=== PATIENT | female | born 1965 | race Caucasian/White ===

== ENCOUNTER → 2016-10-25 | Outpatient (CLI) | payer BC ==
[~2016-10-25] MED LIST: BACL-19 PO; GABA600T2 PO; HYDR-3307 PO; METH750T87 PO; OXYC1TAB9 PO
== END | disposition home or self-care (01) ==
LOC: LAB 09:47
PROVIDERS: ATTEND Neurological Surgery
DX: Z01.818 Encounter for other preprocedural examination (principal)
CPT/HCPCS: 71020; 93005

== ENCOUNTER 2016-11-23 11:33 | Inpatient (IN) | payer BC ==
[2016-11-22 16:09] LABS: HEMOGLOBIN 14.8 g/dL (11.7-16.4); WHITE BLOOD COUNT 8.5 x10^3/uL (3.4-10)
[2016-11-22 16:19] LABS: BLOOD UREA NITROGEN 13 mg/dL (7-18)
[~2016-11-23] VITALS: Ht 180.3 cm; Wt 99.7 kg
[~2016-11-23 11:33] MED LIST changes: +BACITRACIN 50,000 UNIT ONE; +BUPIVACAINE/PF 0.5% ONE; +EPINEPHRINE 1 MG/ML, 1ML ONE; +THROMBIN 20,000 UNIT VIAL TP ONE
[2016-11-23] MEDS ORDERED: LACTATED RINGERS 1,000 ML IV SCH (12:08)
[2016-11-23] MEDS ORDERED: OXYC-307 PO (12:13)
[2016-11-23] MEDS ORDERED: LIDOCAINE OINTMENT (12:15)
[2016-11-23] MEDS ORDERED: FENTANYL PF 250 MCG/5ML ONE (14:12)
[2016-11-23] MEDS ORDERED: LIDOCAINE-MPF 2% ,5ML ONE (14:16)
[2016-11-23] MEDS ORDERED: CEFAZOLIN 1,000 MG ONE (14:16)
[2016-11-23] MEDS ORDERED: METOCLOPRAMIDE 5 MG/ML, 2ML ONE (14:16)
[2016-11-23] MEDS ORDERED: DEXAMETHASONE 4 MG/ML, 5ML ONE (14:16)
[2016-11-23] MEDS ORDERED: PROPOFOL 10 MG/ML, 50ML ONE (14:16)
[2016-11-23] MEDS ORDERED: ONDANSETRON 2MG/ML, 2ML ONE ×2 (14:16→16:45)
[2016-11-23] MEDS ORDERED: ONDANSETRON 2MG/ML, 2ML IVPush PRN (15:00)
[2016-11-23] MEDS ORDERED: LABETALOL 5MG/ML, 20ML IV PRN (15:00)
[2016-11-23] MEDS ORDERED: OXYcodone 5 MG/5 ML ORAL.SOL UDC PO PRN (15:00)
[2016-11-23] MEDS ORDERED: ACETAMINOPHEN 325 MG TABLET PO PRN (15:00)
[2016-11-23] MEDS ORDERED: hydrALAzine 20 MG/ML, 1ML IV PRN (15:00)
[2016-11-23] MEDS ORDERED: PROMETHAZINE 25 MG/ML, 1ML IV PRN (15:00)
[2016-11-23] MEDS ORDERED: DIAZEPAM 5 MG/ML, 2ML IVPush PRN (15:00)
[2016-11-23] MEDS ORDERED: MIDAZOLAM 1 MG/ML, 2ML IV PRN (15:00)
[2016-11-23] MEDS ORDERED: MIDAZOLAM 1 MG/ML, 2ML ONE ×2 (15:33→15:34)
[2016-11-23] MEDS ORDERED: FENTANYL PF 100 MCG/2ML ONE ×3 (16:42→17:38)
[2016-11-23] MEDS ORDERED: OXYcodone 5 MG/5 ML ORAL.SOL UDC ONE (16:44)
[2016-11-23] MEDS ORDERED: ACETAMINOPHEN 650 MG/20.3 ML UDC ONE (16:45)
[2016-11-23] MEDS: FENTANYL PF 100 MCG/2ML IV PRN ×7 (16:46→23:34)
[2016-11-23] MEDS ORDERED: DIPHENHYDRAMINE 50 MG CAPSULE PO PRN (19:00)
[2016-11-23] MEDS ORDERED: NS + 20MEQ KCL 1,000 ML IV SCH (19:00)
[2016-11-23] MEDS ORDERED: MAGNESIUM HYDROXIDE 8%, 30ML UDC PO PRN (19:00)
[2016-11-23] MEDS ORDERED: DIPHENHYDRAMINE 50 MG/ML, 1ML IM PRN (19:00)
[2016-11-23] MEDS ORDERED: OXYcodone/APAP 5/325MG TABLET PO PRN (19:00)
[2016-11-23] MEDS ORDERED: BISACODYL 10 MG SUPP PR PRN (19:00)
[2016-11-23] MEDS ORDERED: METHOCARBAMOL 1,000 MG in DEXTROSE 5% 100 ML IV ONE (20:00)
[2016-11-23 20:15] VITALS: BP 134/84
[2016-11-23] MEDS ORDERED: ZOLPIDEM 5MG TABLET PO PRN (21:00)
[2016-11-23] MEDS: OXYcodone 5 MG/5 ML ORAL.SOL UDC PO PRN (21:28)
[2016-11-23] MEDS: ACETAMINOPHEN 650 MG/20.3 ML UDC PO PRN (21:28)
[2016-11-23] MEDS: CEFAZOLIN PMX 1GM/50ML 50 ML IVPB SCH (22:22)
[2016-11-24 00:10] VITALS: BP 147/82
[2016-11-24] MEDS: OXYcodone 5 MG/5 ML ORAL.SOL UDC PO PRN ×4 (01:28→14:18)
[2016-11-24] MEDS: ACETAMINOPHEN 650 MG/20.3 ML UDC PO PRN ×4 (01:28→14:18)
[2016-11-24 04:05] VITALS: BP 135/69
[2016-11-24] MEDS: FENTANYL PF 100 MCG/2ML IV PRN ×4 (04:06→15:57)
[2016-11-24] MEDS: METHOCARBAMOL 750 MG in DEXTROSE 5% 100 ML IV SCH ×2 (04:06→12:29)
[2016-11-24] MEDS ORDERED: SENN1TAB7 PO (04:52)
[2016-11-24] MEDS ORDERED: CHOL10003 PO ×2 (04:54→16:45)
[2016-11-24] MEDS ORDERED: CALC300T5 PO (04:55)
[2016-11-24] MEDS: CEFAZOLIN PMX 1GM/50ML 50 ML IVPB SCH (05:34)
[2016-11-24 07:30] VITALS: BP 148/71
[2016-11-24] MEDS ORDERED: SENNA/DOCUSATE TABLET PO SCH (09:00)
[2016-11-24] MEDS: ONDANSETRON 2MG/ML, 2ML IV PRN ×2 (09:19→15:58)
[2016-11-24 14:06] VITALS: BP 134/84
[2016-11-24] MEDS ORDERED: CALC200T3 PO (16:45)
[2016-11-24] MEDS ORDERED: METH750T87 PO (16:46)
[2016-11-24] MEDS ORDERED: OXYC-307 PO (16:46)
[2016-11-26] MEDS ORDERED: METHOCARBAMOL 750 MG TABLET PO SCH (12:00)
== END 2016-11-24 16:56 | disposition home or self-care (01) | DRG 472 ==
LOC: OUT 11:33 → 4NOR 18:22 → OUT 11-24 11:56
PROVIDERS: ADMIT Neurological Surgery; ATTEND Neurological Surgery
PROC: 0RB30ZZ Excision of Cervical Vertebral Disc, Open Approach (ICD-10-PCS; principal; 2016-11-24)
PROC: 0RG20A0 Fusion of 2 or more Cervical Vertebral Joints with Interbody Fusion Device, Anterior Approach, Anterior Column, Open Approach (ICD-10-PCS; 2016-11-24)
DX: M48.02 Spinal stenosis, cervical region (principal); G95.20 Unspecified cord compression; M54.12 Radiculopathy, cervical region
CPT/HCPCS: 36415; 72040; 80048; 85025; 85610; 85730; 93005; C1713; J0171; J0690; J1100; J2250; J2405; J2704; J3010; J3360; J3480; J3490; J2765; J2800; J7120

== ENCOUNTER 2016-11-26 16:47 | Emergency (ER) | payer BC, OTHER ==
[~2016-11-26] VITALS: Ht 180.3 cm; Wt 90.0 kg
[~2016-11-26 16:47] MED LIST changes: -BACITRACIN 50,000 UNIT ONE; -BUPIVACAINE/PF 0.5% ONE; +CALC200T3 PO; +CALC300T5 PO; +CHOL10003 PO; -EPINEPHRINE 1 MG/ML, 1ML ONE; +LIDOCAINE OINTMENT; +OXYC-307 PO; +SENN1TAB7 PO; -THROMBIN 20,000 UNIT VIAL TP ONE
[2016-11-26 16:49] VITALS: BP 109/66
[2016-11-26] MEDS ORDERED: DIAZEPAM 5 MG TABLET PO ONE (17:30)
[2016-11-26] MEDS ORDERED: DIAZEPAM 5 MG TABLET ONE (17:42)
== END 2016-11-26 18:22 | disposition home or self-care (01) ==
LOC: ED 18:20
DX: M54.2 Cervicalgia (principal); F17.200 Nicotine dependence, unspecified, uncomplicated; V49.9XXA Car occupant (driver) (passenger) injured in unspecified traffic accident, initial encounter; Y93.89 Activity, other specified; Y92.89 Other specified places as the place of occurrence of the external cause; Y99.9 Unspecified external cause status
CPT/HCPCS: 99283